=== PATIENT | female | born 1990 | race American Indian/Alaskan Native ===

== ENCOUNTER 2019-02-18 00:12 | Emergency (ER) | payer OTHER ==
[2019-02-18 02:06] LABS: HCG Qualitative,Urine Negative (Negative)
[2019-02-18] MEDS ORDERED: ALUM-MAG HYDROXIDE-SIMETHICONE 200-200-20MG/5ML ORAL LIQD 30 ML PO ONE (02:26)
[2019-02-18] MEDS ORDERED: FAMOTIDINE 20 MG/2 ML INJ IV ONE (02:26)
[2019-02-18] MEDS ORDERED: LIDOCAINE VISCOUS 2% 15 ML ORAL LIQD PO ONE (02:26)
[2019-02-18] MEDS ORDERED: SODIUM CHLORIDE 0.9% 1000 ML 1,000 ML IV ONE (02:27)
[2019-02-18] MEDS ORDERED: KETOROLAC 30 MG/1 ML INJ IV ONE (02:28)
[2019-02-18 03:04] LABS: Basophils % (Auto) 0.2 % (0.0-1.8); Eosinophils % (Auto) 0.1 % (0.0-4.3); Hematocrit 35.4 % (30.3-42.9); Hemoglobin 11.4 gm/dl (10.1-14.3); Lymphocytes # (Auto) 1.1 K/mm3 (1.2-5.4); Mean Corpuscular HGB Conc 32 % (30-34); Mean Corpuscular Volume 80 fl (79-97); Monocytes # (Auto) 0.8 K/mm3 (0.0-0.8); Monocytes % (Auto) 5.6 % (0.0-7.3); Platelet Count 265 K/mm3 (140-440); Red Blood Count 4.44 M/mm3 (3.65-5.03); Red Cell Distribution Width 15.9 % (13.2-15.2)
[2019-02-18 03:19] LABS: Alanine Aminotransferase 58 units/L (7-56)
--- NOTE | 2019-02-18 03:20 | XRay Report ---
CHEST 2 VIEWS INDICATION / CLINICAL INFORMATION: chestpain. COMPARISON: None available. FINDINGS: SUPPORT DEVICES: None. HEART / MEDIASTINUM: No significant abnormality. LUNGS / PLEURA: No significant pulmonary or pleural abnormality. No pneumothorax. ADDITIONAL FINDINGS: No significant additional findings. IMPRESSION: 1. No acute findings. Signer Name: Filiberto Sherwood MD Signed: 02/18/2019 3:15 AM Workstation Name: [id number]
[2019-02-18 03:44] LABS: BUN/Creatinine Ratio 14; Blood Urea Nitrogen 10 mg/dL (7-17); Calcium 8.8 mg/dL (8.4-10.2); Hemolysis Index 6
--- NOTE | 2019-02-18 05:27 | Ultrasound Report ---
ULTRASOUND ABDOMEN, LIMITED (RIGHT UPPER QUADRANT) INDICATION: epigastric pain - Gallstones vs Cholecystitis. COMPARISON: None available. FINDINGS: Pancreas: Visualized portion shows no significant abnormality. Liver: Normal. Gallbladder: There are multiple gallstones present. No wall thickening or pericholecystic fluid. Bile ducts: Normal. Common Bile Duct measures 4.3 mm. Free fluid: None. Additional Findings: None. IMPRESSION: 1. Cholelithiasis. Signer Name: Filiberto Sherwood MD Signed: 02/18/2019 5:23 AM Workstation Name: [email or web address]
--- NOTE | 2019-02-18 06:32 | Emergency Department Report ---
ED Abdominal Pain HPI - General Chief Complaint: Chest Pain Stated Complaint: CHEST PAIN,CHILLS,SHAKY Source: patient Mode of arrival: Ambulatory Limitations: No Limitations - History of Present Illness Initial Comments: Patient is a 28-year-old [place] female with a history of chronic gallstones who presents to the ED with complaint of acute onset persistent severe epigastric pain with nausea and vomiting for the last 1 hour. Patient states that she was about to order food for delivery when the symptoms began. 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 Patient also complaints of substernal chest inter mittently. Patient denies dizziness, headache, chest pain, shortness of breath, fever, chills, dysuria, urinary frequency and urgency, back pain, sore throat, cough, nasal and sinus congestion, hematemesis, hematochezia or diarrhea. MD Complaint: abdominal pain (epigastric ), other (nausea and vomiting, substernal chest wall pain) -: Sudden, hour(s) (1) Location: epigastric Radiation: epigastric Migration to: no migration Severity scale (0 -10): 6 Quality: aching, sharp, burning Consistency: constant Improves With: nothing Worsens With: eating, vomiting Associated Symptoms: denies other symptoms, nausea, vomiting. denies: diarrhea, fever, constipation, dysuria, hematemesis, hematochezia, melena, hematuria, anorexia, syncope, other - Related Data LMP Date: 02/16/19 Previous Rx's Medication Instructions Recorded Last Taken Type Famotidine [Pepcid] 20 mg PO Q12H #60 tablet 02/18/19 Unknown Rx Ketorolac [Toradol] 10 mg PO Q8H PRN #20 tablet 02/18/19 Unknown Rx Ondansetron [Zofran Odt] 4 mg PO Q6HR PRN #20 tab.rapdis 02/18/19 Unknown Rx traMADoL [Ultram] 50 mg PO Q6HR PRN #12 tablet 02/18/19 Unknown Rx Allergies Allergy/AdvReac Type Severity Reaction Status Date / Time amoxicillin Allergy Itching Verified 02/18/19 01:23 Penicillins Allergy Hives Verified 02/18/19 01:22 ED Review of Systems ROS: Stated complaint: CHEST PAIN,CHILLS,SHAKY Other details as noted in HPI Constitutional: denies: chills, fever Eyes: denies: eye pain, eye discharge, vision change ENT: denies: ear pain, throat pain Respiratory: denies: cough, shortness of breath, wheezing Cardiovascular: denies: chest pain, palpitations Endocrine: no symptoms reported Gastrointestinal: abdominal pain (epigastric pain), nausea, vomiting. denies: diarrhea Genitourinary: denies: urgency, dysuria, discharge Musculoskeletal: denies: back pain, joint swelling, arthralgia Skin: denies: rash, lesions Neurological: denies: headache, weakness, paresthesias Psychiatric: denies: anxiety, depression Hematological/Lymphatic: denies: easy bleeding, easy bruising ED Past Medical Hx - Past Medical History Previous Medical History?: Yes Additional medical history: Gall stones - Surgical History Past Surgical History?: No - Social History Smoking Status: Never Smoker Substance Use Type: None - Medications Home Medications: Home Medications Medication Instructions Recorded Confirmed Last Taken Type Famotidine [Pepcid] 20 mg PO Q12H #60 tablet 02/18/19 Unknown Rx Ketorolac [Toradol] 10 mg PO Q8H PRN #20 tablet 02/18/19 Unknown Rx Ondansetron [Zofran Odt] 4 mg PO Q6HR PRN #20 tab.rapdis 02/18/19 Unknown Rx traMADoL [Ultram] 50 mg PO Q6HR PRN #12 tablet 02/18/19 Unknown Rx ED Physical Exam - General Limitations: No Limitations General appearance: alert, in no apparent distress - Head Head exam: Present: atraumatic, normocephalic, normal inspection - Eye Eye exam: Present: normal appearance, PERRL Pupils: Present: normal accommodation - ENT ENT exam: Present: normal exam, normal orophraynx, mucous membranes moist, TM's normal bilaterally, normal external ear exam - Neck Neck exam: Present: normal inspection, full ROM. Absent: tenderness - Respiratory Respiratory exam: Present: normal lung sounds bilaterally. Absent: respiratory distress, wheezes, rhonchi, stridor, chest wall tenderness, accessory muscle use, decreased breath sounds - Cardiovascular Cardiovascular Exam: Present: regular rate, normal rhythm. Absent: systolic murmur, diastolic murmur, rubs, gallop - GI/Abdominal GI/Abdominal exam: Present: soft, tenderness (palpable epigastric and right upper quadrant tenderness with no guarding), normal bowel sounds. Absent: guarding, rebound, hyperactive bowel sounds - Extremities Exam Extremities exam: Present: normal inspection, full ROM, normal capillary refill - Back Exam Back exam: Present: normal inspection, full ROM. Absent: muscle spasm, paraspinal tenderness - Neurological Exam Neurological exam: Present: alert, oriented X3, CN II-XII intact, normal gait, reflexes normal - Psychiatric Psychiatric exam: Present: normal affect, normal mood - Skin Skin exam: Present: warm, dry, intact, normal color. Absent: rash ED Course Vital Signs 02/18/19 02/18/19 02/18/19 00:15 03:45 07:45 Temperature 98.7 F 98.1 F Pulse Rate 77 86 Respiratory 18 16 15 Rate Blood Pressure 118/57 Blood Pressure 119/71 [Right] O2 Sat by Pulse 99 99 Oximetry 02/18/19 07:47 Temperature 98.1 F Pulse Rate 86 Respiratory 15 Rate Blood Pressure 119/71 Blood Pressure [Right] O2 Sat by Pulse 99 Oximetry ED Medical Decision Making - Lab Data Result diagrams: 02/18/19 02:40 02/18/19 02:40 - Radiology Data Radiology results: report reviewed, image reviewed Findings [facility] [address] [place] [address] Ultrasound Report Signed Patient: JOSEFINA RICCI MR#: [id number] : 1990 Acct:[id number] Age/Sex: 28 / F ADM Date: 02/18/19 Loc: ED Attending Dr: Ordering Physician: GURPREET SERRATO Date of Service: 02/18/19 Procedure(s): US abdomen limited Accession Number(s): [id number] cc: GURPREET SERRATO ULTRASOUND ABDOMEN, LIMITED (RIGHT UPPER QUADRANT) INDICATION: epigastric pain - Gallstones vs Cholecystitis. COMPARISON: None available. FINDINGS: Pancreas: Visualized portion shows no significant abnormality. Liver: Normal. Gallbladder: There are multiple gallstones present. No wall thickening or pericholecystic fluid. Bile ducts: Normal. Common Bile Duct measures 4.3 mm. Free fluid: None. Additional Findings: None. IMPRESSION: 1. Cholelithiasis. Signer Name: Filiberto Sherwood MD Signed: 02/18/2019 5:23 AM Workstation Name: [id number] Transcribed By: ALLEN Dictated By: Filiberto Sherwood MD Electronically Authenticated By: Filiberto Sherwood MD Signed Date/Time: 02/18/19522 DD/ 0 TD/TT: - Medical Decision Making This is a 28-year-old female who presented to the ED with epigastric pain that radiates to the substernal chest and right upper quadrant pain with nausea. In the ED, patient is alert and oriented 3 and is not in distress but appears to be in significant pain. Patient was treated for pain and also treated with antacids and anti-emetics. Chest x-ray shows no acute cardiopulmonary abnormalities or pneumonitis. Lab test results were reviewed and showed acute leukocytosis of 13,500, elevated AST and ALT of 147 and 58 respectively; also acute hypokalemia 3.3 mmol per liter, acute hyponatremia of 136 mmol per liter. The troponin and d-dimer levels were normal. The gallbladder ultrasound showed multiple gallstones with no gallbladder wall thickening or pericholecystic fluid. Bile ducts: Normal. Common Bile Duct measures 4.3 mm. on reevaluation, patient's pain and nausea was well controlled with medications. Patient symptoms were likely due to cholelithiasis. Patient was discharged home on medications and given a referral to the general surgeon on-call Dr. Nelson, for follow-up. Patient was advised to call Dr. Nelson's office first thing in the morning to schedule a follow-up appointment for possible laparoscopy cholecystectomy. Gurpreet castaneda was otherwise advised to return to the ED immediately if symptoms get worse. - Differential Diagnosis GERD; Cholelithiasis; Cholecystitis; ACS; Gastritis Critical care attestation.: If time is entered above; I have spent that time in minutes in the direct care of this critically ill patient, excluding procedure time. ED Disposition Clinical Impression: Acute epigastric pain, Cholelithiasis without cholecystitis, Nausea and vomiting in adult GERD (gastroesophageal reflux disease) Qualifiers: Esophagitis presence: without esophagitis Qualified Code(s): K21.9 - Gastro- esophageal reflux disease without esophagitis Disposition: DC-01 TO HOME OR SELFCARE Is pt being admited?: No Does the pt Need Aspirin: No Condition: Stable Instructions: Cholelithiasis (ED), Gastroesophageal Reflux Disease (ED), Acute Nausea and Vomiting (ED), Acute Abdominal Pain (ED) Additional Instructions: Take medications with food, drink plenty of fluids and follow-up with the general surgeon Dr. Hernandez was advised. Please contact Dr. Nelson's office first thing in the morning to schedule a follow-up appointment for a possible gallbladder surgery (cholecystectomy). Avoid spicy foods or high fat food. Return to the ED immediately if symptoms get worse. Prescriptions: Famotidine [Pepcid] 20 mg PO Q12H #60 tablet Ketorolac [Toradol] 10 mg PO Q8H PRN #20 tablet PRN Reason: Pain traMADoL [Ultram] 50 mg PO Q6HR PRN #12 tablet PRN Reason: Pain Ondansetron [Zofran Odt] 4 mg PO Q6HR PRN #20 tab.rapdis PRN Reason: Nausea Referrals: ZAINAB NELSON DO [Staff Physician] - 3-5 Days Forms: Work/School Release Form(ED) Time of Disposition: 06:33 Print Language: ITALIAN
[2019-02-18 07:46] VITALS: BP 119/71
== END 2019-02-18 07:49 | disposition home or self-care (01) ==
LOC: ED 00:12
DX: K80.20 Calculus of gallbladder without cholecystitis without obstruction (principal); K21.9 Gastro-esophageal reflux disease without esophagitis; R11.2 Nausea with vomiting, unspecified; Z87.19 Personal history of other diseases of the digestive system; Z79.899 Other long term (current) drug therapy; Z88.0 Allergy status to penicillin; Z88.1 Allergy status to other antibiotic agents
CPT/HCPCS: 36415; 71046; 76705; 80053; 81025; 83690; 84484; 85025; 85379; 93005; 93010; 96361; 96374; 96375; 99284; J1885; J7030